=== PATIENT | male | born 1950 | race Caucasian/White ===

== ENCOUNTER 2020-06-28 11:32 | Inpatient (IN) | payer MEDICARE ==
[~2020-06-28] VITALS: Ht 180.3 cm; Wt 77.1 kg
[~2020-06-28 11:32] MED LIST: AMIODARONE HCL200 MG PO; ASPIRIN 325MG325 MG PO; ATORVASTATIN CA20 MG PO; COMBIVENT0.074 GM/I INH; ELIQUIS 5 MG TAB5 MG PO; FISH OIL 1,0001 EACH PO; FOLIC ACID 1 MG1 MG PO; FUROSEMIDE10 MG/1 M1 IVP; HABITROL 21 MG P1 EA TOP; LOPRESSOR 25 MG25 MG PO; NORVASC 5 MG TAB5 MG PO; PERCOCET 5/325 T1 EA PO; PLAVIX 75 MG TA75 MG PO; SPIRIVA RESPIMAT4 GM INH; TAB-A-VITE1 EACH PO; VITAMIN B-1 5050 MG PO
[2020-06-28 13:31] LABS: HEMOGLOBIN 13.6 gm/dl (14.0-17.5); RED BLOOD COUNT 4.07 M/UL (4.20-5.50); WHITE BLOOD COUNT 8.8 K/UL (4.5-11.0)
[2020-06-28 13:54] LABS: BUN/CREATININE RATIO 10 (0-10)
[2020-06-28] MEDS ORDERED: ZESTRIL 40 MG T40 MG PO (17:30)
[2020-06-28] MEDS ORDERED: FISH OIL 1,0001 EACH PO (17:31)
[2020-06-28] MEDS ORDERED: ASPIRIN EC81 MG PO (17:32)
[2020-06-28] MEDS ORDERED: COREG12.5 MG PO (17:32)
[2020-06-28] MEDS ORDERED: DAILY-VITE1 EACH PO (17:32)
[2020-06-28] MEDS ORDERED: LIPITOR80 MG PO (17:32)
[2020-06-28] MEDS ORDERED: IPRAT-ALBUT 0.5-3 ML INH (17:33)
[2020-06-28] MEDS ORDERED: VITAMIN C500 M4 PO (17:33)
[2020-06-29 03:17] LABS: HEMOGLOBIN 13.2 gm/dl (14.0-17.5); RED BLOOD COUNT 3.97 M/UL (4.20-5.50); WHITE BLOOD COUNT 9.8 K/UL (4.5-11.0)
[2020-06-29 03:55] LABS: BUN/CREATININE RATIO 10 (0-10)
[2020-06-30 03:27] LABS: HEMOGLOBIN 14.7 gm/dl (14.0-17.5); RED BLOOD COUNT 4.34 M/UL (4.20-5.50); WHITE BLOOD COUNT 11.3 K/UL (4.5-11.0)
[2020-06-30 04:07] LABS: BUN/CREATININE RATIO 12 (0-10)
[2020-06-30] MEDS ORDERED: LASIX40 MG PO (11:40)
== END 2020-06-30 15:18 | disposition home or self-care (01) | DRG 292 ==
LOC: ER1 11:32 → CDU 15:42 → M/S 20:59
PROVIDERS: Physician Assistant; Student in an Organized Health Care Education/Training Program; ADMIT Internal Medicine Infectious Disease
PROC: B24BZZ4 Ultrasonography of Heart with Aorta, Transesophageal (ICD-10-PCS; principal; 2020-06-28)
DX: I11.0 Hypertensive heart disease with heart failure (principal); E87.1 Hypo-osmolality and hyponatremia; I50.23 Acute on chronic systolic (congestive) heart failure; I08.3 Combined rheumatic disorders of mitral, aortic and tricuspid valves; Z20.822 Contact with and (suspected) exposure to COVID-19; F32.9 Major depressive disorder, single episode, unspecified; F10.10 Alcohol abuse, uncomplicated; D50.9 Iron deficiency anemia, unspecified; I27.20 Pulmonary hypertension, unspecified; I25.10 Atherosclerotic heart disease of native coronary artery without angina pectoris; I25.5 Ischemic cardiomyopathy; Z95.1 Presence of aortocoronary bypass graft; Z79.82 Long term (current) use of aspirin
CPT/HCPCS: ECHO; 0240U; 36415; 71045; 71046; 80048; 80053; 82550; 82553; 83605; 83735; 83874; 83880; 84100; 84484; 85025; 93005; 93306; 94640; 99285; J1940

== ENCOUNTER → 2020-07-06 | Outpatient (CLI) | payer OTHER ==
[~2020-07-06] MED LIST changes: +ASPIRIN EC81 MG PO; +COREG12.5 MG PO; +DAILY-VITE1 EACH PO; +IPRAT-ALBUT 0.5-3 ML INH; +LASIX40 MG PO; +LIPITOR80 MG PO; +VITAMIN C500 M4 PO; +ZESTRIL 40 MG T40 MG PO
== END ==
LOC: LAB 09:48
PROVIDERS: Internal Medicine Infectious Disease
DX: I50.22 Chronic systolic (congestive) heart failure (principal)
CPT/HCPCS: 36415; 80053

== ENCOUNTER 2021-06-18 09:41 | Emergency (ER) | payer OTHER ==
[2021-06-18 10:48] LABS: HEMOGLOBIN 11.8 gm/dl (14.0-17.5); RED BLOOD COUNT 3.51 M/UL (4.20-5.50); WHITE BLOOD COUNT 8.5 K/UL (4.5-11.0)
[2021-06-18 11:17] LABS: BUN/CREATININE RATIO 14 (0-10)
== END 2021-06-18 12:28 | disposition home or self-care (01) ==
LOC: ER1 09:41
PROVIDERS: Emergency Medicine
DX: E87.1 Hypo-osmolality and hyponatremia (principal); I10 Essential (primary) hypertension; I25.10 Atherosclerotic heart disease of native coronary artery without angina pectoris; E78.5 Hyperlipidemia, unspecified; Z95.1 Presence of aortocoronary bypass graft
CPT/HCPCS: 80053; 82550; 82553; 84484; 85025; 93005; 99285

== ENCOUNTER → 2021-06-20 | Outpatient (CLI) | payer OTHER | LOC: LAB 10:19 | PROVIDERS: Emergency Medicine | DX: E87.1 Hypo-osmolality and hyponatremia (principal) | CPT/HCPCS: 36415; 80048 ==

== ENCOUNTER 2021-07-29 18:08 | Emergency (ER) | payer OTHER | END 2021-07-29 19:02 | disposition left against medical advice (07) | LOC: ER1 18:08 | DX: R21 Rash and other nonspecific skin eruption (principal); I11.0 Hypertensive heart disease with heart failure; I50.9 Heart failure, unspecified | CPT/HCPCS: 99281 ==

== ENCOUNTER 2021-10-26 13:20 | Emergency (ER) | payer OTHER ==
[2021-10-26 14:08] LABS: HEMOGLOBIN 11.8 gm/dl (14.0-17.5); RED BLOOD COUNT 3.61 M/UL (4.20-5.50)
[2021-10-26 14:43] LABS: BUN/CREATININE RATIO 11 (0-10)
[2021-10-26] MEDS ORDERED: LEVOFLOXACIN500 MG PO (17:51)
== END 2021-10-26 18:19 | disposition home or self-care (01) ==
LOC: ER1 13:20
DX: N45.3 Epididymo-orchitis (principal); N43.3 Hydrocele, unspecified; I11.0 Hypertensive heart disease with heart failure; I50.9 Heart failure, unspecified; F17.210 Nicotine dependence, cigarettes, uncomplicated; E78.5 Hyperlipidemia, unspecified; Z95.1 Presence of aortocoronary bypass graft
CPT/HCPCS: 71045; 76870; 80053; 81001; 82550; 82553; 83880; 84484; 85025; 85379; 96372; 96374; 96375; 99284; J0696; J1885; J1940